=== PATIENT | male | born 2000 | race Caucasian/White ===

== ENCOUNTER 2022-09-14 20:10 | Emergency (ER) | payer SELFPAY ==
[~2022-09-14] VITALS: Ht 160 cm; Wt 97.7 kg
[2022-09-14 20:16] VITALS: BP 151/106
--- NOTE | 2022-09-14 20:47 | ED Abdominal Pain ---
General Chief Complaint: Abdominal/GI Problems Stated Complaint: BLOODY STOOL / ABDOMINAL PAIN Nursing Triage Note: Patient c/o Rt. umbilical pain that started a "few" hrs ago. Patient states he had a bowel movement and states he had blood on the stool. Patient states he does have a Hx. of constipation, but states this stool was not hard to pass. Patient denies anything making his pain worse or better. Patient denies any diarrhea, fevers, or Hx. of colitis, diverticulitis, or hemorriods. Patient states the pain is a constant sharp pain. Source of Information: Patient Exam Limitations: No Limitations (ANALI PADILLA) History of Present Illness Date Seen by Provider: Sep 14, 2022 Time Seen by Provider: 20:44 Initial Comments Patient is a 22-year-old male who presents ED with right sided umbilical pain that started 2 hours ago. Patient states he was at home. Patient states that he had a bowel movement that was soft and noted bright red blood on the toilet paper and in the bowl of the toilet. He states he had similar type blood in the past with a bowel movement but it resolved on its own. Patient only had 1 episode this evening. patient states he has a history of constipation. The pain is rated 4 out of 10. Described as sharp. No radiation. Denies of vomiting. No history of previous abdominal surgery. Pain is not worse with movement. Patient denies take anything for the pain. Patient denies of any fever, chills, chest pain, shortness of breath, cough, headache. Denies of any urinary symptoms. Reports history of (ANALI PADILLA) Allergies and Home Medications Allergies Coded Allergies: No Known Drug Allergies (Unverified , 09/14/22) Patient Home Medication List Home Medication List Reviewed: Yes (BECKY TY DO) Ciprofloxacin HCl (Cipro) 500 Mg Tablet, 500 MG PO BID Prescribed by: ARABELLA NORRIS on 09/14/222249 Metronidazole (Metronidazole) 500 Mg Tablet, 500 MG PO TID Prescribed by: ARABELLA NORRIS on 09/14/222249 Review of Systems Review of Systems Constitutional: No chills, No diaphoresis, No fever EENTM: No Eye Pain, No Eye Tearing, No Mouth Pain, No Mouth Swelling Respiratory: Denies Cough Cardiovascular: Denies Chest Pain Gastrointestinal: Denies Constipated, Denies Diarrhea, Denies Nausea; Rectal Bleeding; Denies Vomiting Genitourinary: Denies Burning, Denies Discharge Musculoskeletal: No back pain, No joint pain Skin: No change in color, No change in hair/nails (ANALI PADILLA) All Other Systems Reviewed Negative Unless Noted: Yes (ANALI PADILLA) Physical Exam Vital Signs Vital Signs - First Documented 09/14/22 20:16 Temp 37.1 Pulse 73 Resp 16 B/P (MAP) 151/106 (121) Pulse Ox 97 O2 Delivery Room Air (KARSON,BECKY K DO) Vital Signs Capillary Refill : (ANALI PADILLA) Height/Weight/BMI Height: '" Weight: lbs. oz. kg; 38.00 BMI Method: General Appearance: WD/WN, no apparent distress HEENT: PERRL/EOMI, normal ENT inspection, TMs normal, pharynx normal Neck: non-tender, full range of motion, supple Respiratory: chest non-tender, lungs clear, normal breath sounds, no respiratory distress Cardiovascular: regular rate, rhythm, no edema, no gallop, no JVD Gastrointestinal: normal bowel sounds, soft, no organomegaly, other (Mild right-sided umbilical tenderness.) Extremities: normal range of motion, non-tender, normal inspection, no pedal edema Back: normal inspection, no vertebral tenderness Skin: normal color, warm/dry (ANALI PADILLA) Progress/Results/Core Measures Results/Orders Lab Results Laboratory Tests Test 09/14/22 20:48 09/14/22 21:40 Range/Units White Blood Count 13.9 H 4.3-11.0 10^3/uL Red Blood Count 5.52 4.30-5.52 10^6/uL Hemoglobin 16.5 13.3-17.7 g/dL Hematocrit 47 40-54 % Mean Corpuscular Volume 86 80-99 fL Mean Corpuscular Hemoglobin 30 25-34 pg Mean Corpuscular Hemoglobin Concent 35 32-36 g/dL Red Cell Distribution Width 13.5 10.0-14.5 % Platelet Count 261 130-400 10^3/uL Mean Platelet Volume 10.6 9.0-12.2 fL Immature Granulocyte % (Auto) 1 % Neutrophils (%) (Auto) 63 42-75 % Lymphocytes (%) (Auto) 26 12-44 % Monocytes (%) (Auto) 9 0-12 % Eosinophils (%) (Auto) 1 0-10 % Basophils (%) (Auto) 1 0-10 % Neutrophils # (Auto) 8.7 H 1.8-7.8 10^3/uL Lymphocytes # (Auto) 3.6 1.0-4.0 10^3/uL Monocytes # (Auto) 1.3 H 0.0-1.0 10^3/uL Eosinophils # (Auto) 0.2 0.0-0.3 10^3/uL Basophils # (Auto) 0.1 0.0-0.1 10^3/uL Immature Granulocyte # (Auto) 0.1 0.0-0.1 10^3/uL Sodium Level 136 135-145 MMOL/L Potassium Level 4.3 3.6-5.0 MMOL/L Chloride Level 102 98-107 MMOL/L Carbon Dioxide Level 21 21-32 MMOL/L Anion Gap 13 5-14 MMOL/L Blood Urea Nitrogen 19 H 7-18 MG/DL Creatinine 0.97 0.60-1.30 MG/DL Estimat Glomerular Filtration Rate 112 BUN/Creatinine Ratio 20 Glucose Level 101 70-105 MG/DL Calcium Level 9.4 8.5-10.1 MG/DL Corrected Calcium 9.0 8.5-10.1 MG/DL Total Bilirubin 0.3 0.1-1.0 MG/DL Aspartate Amino Transf (AST/SGOT) 28 5-34 U/L Alanine Aminotransferase (ALT/SGPT) 44 0-55 U/L Alkaline Phosphatase 99 40-136 U/L Total Protein 8.5 H 6.4-8.2 GM/DL Albumin 4.5 3.2-4.5 GM/DL Urine Color YELLOW Urine Clarity CLEAR Urine pH 7.0 5-9 Urine Specific [place] 1.010 L 1.016-1.022 Urine Protein NEGATIVE NEGATIVE Urine Glucose (UA) NEGATIVE NEGATIVE Urine Ketones NEGATIVE NEGATIVE Urine Nitrite NEGATIVE NEGATIVE Urine Bilirubin NEGATIVE NEGATIVE Urine Urobilinogen 0.2 < = 1.0 MG/DL Urine Leukocyte Esterase NEGATIVE NEGATIVE Urine RBC (Auto) NEGATIVE NEGATIVE Urine RBC NONE /HPF Urine WBC NONE /HPF Urine Squamous Epithelial Cells RARE /HPF Urine Crystals NONE /LPF Urine Bacteria TRACE /HPF Urine Casts NONE /LPF Urine Mucus NEGATIVE /LPF Urine Culture Indicated NO (BECKY TY ) Vital Signs/I&O 09/14/22 20:16 Temp 37.1 Pulse 73 Resp 16 B/P (MAP) 151/106 (121) Pulse Ox 97 O2 Delivery Room Air (BECKY TY ) Blood Pressure Mean: 121 Departure Communication (PCP) Patient is a 22-year-old male who presents ED with right-sided abdominal pain and bright red bloody stool. 1 episode of blood in his stool while wiping and in the bowl of the toilet. Denies of any gross blood. Cute onset of right side abdominal pain. No history of previous abdominal surgery. Denies of any urinary symptoms. Denies of any purulent drainage from his penis. No fever, chills, body aches or diarrhea. History of constipation. Similar bloody stool in the past that resolved on its own. Denies of any anal pain. On exam of his anus no evidence of external hemorrhoids. Normal rectal tone. Positive Hemoccult. CBC, CMP showed elevated white blood count at 13.9 but otherwise unremarkable. Normal kidney function liver function. Urinalysis was negative for infection. Due to the elevated white blood count and the right lower quadrant tenderness CT scan of the abdomen and pelvis was ordered. Differential diagnosis of colitis, diverticulitis, appendicitis. CT abdomen and pelvis was concern for proctitis. Could be related to history of constipation versus bact erial versus STD. STD cultures currently pending and was not treated prophylactically. Not concern for STD. Patient will be discharged with Flagyl and Cipro if secondary to a bacterial infection. Discussed laxatives for the next 2 or 3 days and continue to help with bowel movements. Continue monitoring bloody stools. Potential internal hemorrhoid versus inflammation of the distal rectum. Discussed general surgery GI outpatient follow-up for further evaluation. If any worsening symptoms such as abdominal pain, fever, vomiting, diarrhea to return back to ED. Tylenol for pain. No vomiting here. Does not appear in acute distress (ANALI PADILLA) Impression Primary Impression: Proctitis Disposition: 01 HOME, SELF-CARE Condition: Stable Departure-Patient Inst. Decision time for Depature: 22:47 (ANALI PADILLA) Referrals: DINA HYATT MD (PCP) Primary Care Physician Patient Instructions: Proctitis Add. Discharge Instructions: Take antibiotics as prescribed. Recommend laxatives to help with bowel movements. Recommend follow-up with your primary care physician for further evaluation. Return back to ED if symptoms worsen such as increasing pain, fever, bloody stools. All discharge instructions reviewed with patient and/or family. Voiced understanding. Scripts Ciprofloxacin HCl (Cipro) 500 Mg Tablet 500 MG PO BID for 5 Days, #10 TAB Prov: ANALI PADILLA 09/14/22 Metronidazole (Metronidazole) 500 Mg Tablet 500 MG PO TID for 7 Days, #21 TAB Prov: ANALI PADILLA 09/14/22 ATTENDING PHYSICIAN NOTE: I WAS PHYSICALLY PRESENT ER PHYSICIAN, BUT I WAS NOT INVOLVED IN ANY DECISION MAKING OR ANY CARE OF THIS PATIENT AND I AM NOT COLLABORATING PHYSICIAN. (BECKY TY DO) ANALI PADILLA Sep 14, 2022 20:47 BECKY TY DO Sep 15, 2022 06:08
[2022-09-14 20:58] LABS: BASOPHILS # (AUTO) 0.1 10^3/uL (0.0-0.1); BASOPHILS % (AUTO) 1 % (0-10); EOSINOPHILS # (AUTO) 0.2 10^3/uL (0.0-0.3); EOSINOPHILS % (AUTO) 1 % (0-10); HEMATOCRIT 47 % (40-54); HEMOGLOBIN 16.5 g/dL (13.3-17.7); LYMPHOCYTES # (AUTO) 3.6 10^3/uL (1.0-4.0); LYMPHOCYTES % (AUTO) 26 % (12-44); MEAN CORPUSCULAR HEMOGLOBIN 30 pg (25-34); MEAN CORPUSCULAR HGB CONC 35 g/dL (32-36); MEAN CORPUSCULAR VOLUME 86 fL (80-99); MEAN PLATELET VOLUME 10.6 fL (9.0-12.2); MONOCYTES # (AUTO) 1.3 10^3/uL (0.0-1.0); MONOCYTES % (AUTO) 9 % (0-12); NEUTROPHILS # (AUTO) 8.7 10^3/uL (1.8-7.8); NEUTROPHILS % (AUTO) 63 % (42-75); PLATELET COUNT 261 10^3/uL (130-400); WHITE BLOOD COUNT 13.9 10^3/uL (4.3-11.0)
[2022-09-14 21:18] LABS: ALBUMIN 4.5 GM/DL (3.2-4.5); BILIRUBIN,TOTAL 0.3 MG/DL (0.1-1.0); CALCIUM 9.4 MG/DL (8.5-10.1); CREATININE SERUM 0.97 MG/DL (0.60-1.30); POTASSIUM 4.3 MMOL/L (3.6-5.0); TOTAL PROTEIN 8.5 GM/DL (6.4-8.2)
[2022-09-14 22:03] LABS: BILIRUBIN,URINE NEGATIVE (NEGATIVE); CLARITY,URINE CLEAR; COLOR,URINE YELLOW; GLUCOSE, URINE (UA) NEGATIVE (NEGATIVE); KETONES,URINE NEGATIVE (NEGATIVE); LEUKOCYTE ESTERASE ,URINE NEGATIVE (NEGATIVE); NITRITE,URINE NEGATIVE (NEGATIVE); PROTEIN,URINE NEGATIVE (NEGATIVE)
[2022-09-14 22:24] LABS: BACTERIA,URINE TRACE /HPF; SQUAMOUS EPITHELIAL CELL,UR RARE /HPF
[2022-09-14] MEDS ORDERED: METR-145 PO (22:50)
[2022-09-14] MEDS ORDERED: CIPR-225 PO (22:50)
--- NOTE | 2022-09-15 08:18 | Diagnostic Imaging Report ---
EXAMINATION: CT abdomen and pelvis with intravenous contrast. TECHNIQUE: Multiple contiguous axial images were obtained through the abdomen and pelvis after the uneventful administration of intravenous contrast. All CT scans use one or more of the following dose optimizing techniques: automated exposure control, MA and/or KvP adjustment based on patient size and exam type or iterative reconstruction. HISTORY: Right lower quadrant pain. COMPARISON: None available. FINDINGS: Limited views of the lower thorax are unremarkable. The liver is normal without focal lesion. There is no biliary ductal dilation. Gallbladder is normal. Pancreas is normal. Spleen is normal. Adrenal glands are normal. The kidneys are normal. There is no hydronephrosis. Urinary bladder is normal. Bowel is normal in caliber without obstruction or inflammation. The appendix is normal. No free fluid or air. No abdominal or pelvic lymphadenopathy. Aorta is normal in caliber without aneurysm. There are no suspicious osseus lesions. IMPRESSION: No acute abnormality in the abdomen or pelvis. Preliminary report suggested proctitis; while possible, I favor that the rectum is normal. Dictated by: Dictated on workstation # [id number]
== END 2022-09-14 23:02 | disposition home or self-care (01) ==
LOC: EDUNIT# 20:10 → ER 20:15
DX: K62.89 Other specified diseases of anus and rectum (principal)
CPT/HCPCS: 36415; 74177; 80053; 81000; 85025; 87491; 87591